=== PATIENT | male | born 1960 | race Caucasian/White ===

== ENCOUNTER 2021-10-20 21:18 | Emergency (ER) | payer SELFPAY ==
[~2021-10-20] VITALS: Ht 167.6 cm; Wt 92.7 kg
[2021-10-20 22:44] VITALS: BP 158/107
--- NOTE | 2021-10-20 22:51 | NUR ---
PT IN LOBBY.
[2021-10-20] MEDS ORDERED: LIDOCAINE/EPI 1% 1:100000 20 ML VIAL INJ ONE (22:55)
[2021-10-21] MEDS ORDERED: LIDOCAINE/EPI 1% 1:100000 20 ML VIAL INJ ONE (01:08)
--- NOTE | 2021-10-21 01:20 | NUR ---
PT TO CHAIR A
--- NOTE | 2021-10-21 01:44 | NUR ---
Dr. Colon examining patient.
[2021-10-21] MEDS ORDERED: METF-431 PO (02:02)
[2021-10-21 02:10] VITALS: BP 154/85
--- NOTE | 2021-10-21 02:10 | NUR ---
Patient discharged with v/s stable. Written and verbal after care instructions given and explained. Patient alert, oriented and verbalized understanding of instructions. Ambulatory with steady gait. All questions addressed prior to discharge. ID band removed. Patient advised to follow up with PMD. Rx of METFORMIN given. Patient educated on indication of medication including possible reaction and side effects. Opportunity to ask questions provided and answered.
== END 2021-10-21 02:10 | disposition home or self-care (01) ==
LOC: MED 21:18
DX: S01.111A Laceration without foreign body of right eyelid and periocular area, initial encounter (principal); E11.65 Type 2 diabetes mellitus with hyperglycemia; W20.8XXA Other cause of strike by thrown, projected or falling object, initial encounter; Y93.89 Activity, other specified; Y92.89 Other specified places as the place of occurrence of the external cause; Y99.8 Other external cause status
CPT/HCPCS: 12013; 90471; 90715; 99283; J2001

== ENCOUNTER 2021-10-25 18:43 | Emergency (ER) | payer MEDICAID ==
[~2021-10-25] VITALS: Ht 167.6 cm; Wt 92.5 kg
[~2021-10-25 18:43] MED LIST: METF-431 PO
[2021-10-25 19:15] VITALS: BP 177/90
--- NOTE | 2021-10-25 19:18 | NUR ---
to lobby a/w bed ambulatory
--- NOTE | 2021-10-25 19:45 | NUR ---
suture was removed by PA, with aseptic technique, tolerated well.
[2021-10-25 20:10] VITALS: BP 177/90
--- NOTE | 2021-10-25 20:10 | NUR ---
Patient discharged with v/s stable. Written and verbal after care instructions given and explained. Patient verbalized understanding. Ambulatory with steady gait. All questions addressed prior to discharge. Advised to follow up with PMD.
== END 2021-10-25 20:10 | disposition home or self-care (01) ==
LOC: MED 18:43
DX: S01.111D Laceration without foreign body of right eyelid and periocular area, subsequent encounter (principal); Z48.00 Encounter for change or removal of nonsurgical wound dressing; W22.8XXD Striking against or struck by other objects, subsequent encounter
CPT/HCPCS: 99281